=== PATIENT | female | born 1965 | race Caucasian/White ===

== ENCOUNTER 2017-04-25 12:09 | Outpatient (CLI) | payer BC ==
[2017-04-25 12:33] LABS: ALT (SGPT) 27 U/L (8-55); AST (SGOT) 20 U/L (5-34); Albumin 4.3 g/dL (3.5-5.0); Alkaline Phosphatase 82 U/L (40-150); Anion Gap 14 mmol/L (10-20); BUN (Urea Nitrogen) 12 mg/dL (9.8-20.1); Bilirubin, Total 0.4 mg/dL (0.2-1.2); Calc. Creatinine Clearance 0 mL/min (70-130); Carbon Dioxide 27 mmol/L (22-29); Cardiac Risk 2.7 (Less than 4.5); Chloride 104 mmol/L (98-107); Cholesterol 156 mg/dl (< 200 Desired); Estimated GFR-MDRD Greater than 90; Globulin 3.2 g/dL (2.4-3.5); Glucose 89 mg/dL (70-105); HDL Cholesterol 57 mg/dL (>60 Neg Risk); LDL Cholesterol, Calculated 77 mg/dL; Potassium 4.3 mmol/L (3.5-5.1); Protein, Total 7.5 g/dL (6.0-8.3); Sodium 141 mmol/L (136-145); Triglycerides 110 mg/dL (Less than 150)
== END 2017-04-25 12:10 | disposition home or self-care (01) ==
LOC: MADLAB 12:09
PROVIDERS: ATTEND Internal Medicine Cardiovascular Disease
DX: E78.00 Pure hypercholesterolemia, unspecified (principal)
CPT/HCPCS: 36415; 80053; 80061

== ENCOUNTER 2017-07-23 11:38 | Outpatient (CLI) | payer BC ==
--- NOTE | 2017-07-23 14:59 | RAD ---
LEFT HIP TWO VIEWS: History: Hip pain x four months. FINDINGS: Minimal arthritic changes of the hip. There are tiny spurs at the femoral head and neck junctions and osteophytic change to the acetabulum. No significant joint space narrowing. No fractures. There is s ome questionable soft tissue ossification seen along the lateral aspect of the proximal femoral shaft which may be a sequellae of an old injury. IMPRESSION: Minimal arthritic changes of the hip. POS: C
== END 2017-07-23 11:39 | disposition home or self-care (01) ==
LOC: MADRAD 11:38
PROVIDERS: ATTEND Family Medicine
DX: M79.605 Pain in left leg (principal); M16.12 Unilateral primary osteoarthritis, left hip

== ENCOUNTER 2017-12-21 12:23 | Outpatient (CLI) | payer BC ==
[2017-12-21 13:27] LABS: ALT (SGPT) 36 U/L (8-55); AST (SGOT) 22 U/L (5-34); Albumin 4.4 g/dL (3.5-5.0); BUN (Urea Nitrogen) 17 mg/dL (9.8-20.1); Bilirubin, Total 0.9 mg/dL (0.2-1.2); Calc. Creatinine Clearance 0 mL/min (70-130); Calcium 9.7 mg/dL (7.8-10.44); Carbon Dioxide 37 mmol/L (22-29); Cardiac Risk 2.6 (Less than 4.5); Chloride 101 mmol/L (98-107); Cholesterol 169 mg/dl (< 200 Desired); Estimated GFR-MDRD 85; Globulin 2.9 g/dL (2.4-3.5); Glucose 100 mg/dL (70-105); HDL Cholesterol 65 mg/dL (>60 Neg Risk); LDL Cholesterol, Calculated 92 mg/dL; Protein, Total 7.3 g/dL (6.0-8.3); Sodium 138 mmol/L (136-145); Triglycerides 62 mg/dL (Less than 150)
[2017-12-21 14:20] LABS: Anion Gap 10 mmol/L (10-20)
[2017-12-21 14:29] LABS: Alkaline Phosphatase 69 U/L (40-150)
== END 2017-12-21 12:24 | disposition home or self-care (01) ==
LOC: MADLABBHPM 12:23
PROVIDERS: ATTEND Family Medicine
DX: E78.00 Pure hypercholesterolemia, unspecified (principal)
CPT/HCPCS: 36415; 80053; 80061

== ENCOUNTER 2020-10-05 17:33 | Outpatient (CLI) | payer BC | END 2020-10-05 17:34 | disposition home or self-care (01) | LOC: MADEKG 17:33 | PROVIDERS: ATTEND Family Medicine | DX: R07.9 Chest pain, unspecified (principal) | CPT/HCPCS: 93005; 93010 ==

== ENCOUNTER 2021-02-02 07:12 | Outpatient (CLI) | payer BC | END 2021-02-02 07:13 | disposition home or self-care (01) | LOC: MADULT 07:12 | PROVIDERS: ATTEND Family Medicine | DX: R10.10 Upper abdominal pain, unspecified (principal); K76.0 Fatty (change of) liver, not elsewhere classified | CPT/HCPCS: 76705 ==